=== PATIENT | female | born 1965 | race Two or more races ===

== ENCOUNTER 2019-09-06 16:15 | Emergency (ER) | payer MEDICAID ==
[~2019-09-06] VITALS: Ht 137.2 cm; Wt 69.4 kg
--- NOTE | 2019-09-06 16:45 | NUR ---
Patient came in to ther er c/o left mandibular swelling x 5 days, no improvement even after Antibiotic. On room air, breathing evenly and unlabored. Connected to the monitor and pulse ox. kept comfortable, will continue to monitor accordingly.
[2019-09-06] MEDS ORDERED: KETOROLAC TROMETHAMINE 15 MG/ML VIAL ONE (16:57)
[2019-09-06 16:58] LABS: BASOPHILS # (AUTO) 0.2 /CMM (0.0-0.2); BASOPHILS % (AUTO) 2.1 % (0.0-2.0); HEMATOCRIT 41 % (33-45); HEMOGLOBIN 14.1 g/dL (11.5-14.8); LYMPHOCYTES # (AUTO) 2.6 /CMM (0.8-4.8); LYMPHOCYTES % (AUTO) 30.5 % (20.0-44.0); MEAN CORPUSCULAR HGB CONC 35 g/dl (31.0-36.0); MEAN CORPUSCULAR VOLUME 96 fL (82-100); MONOCYTES # (AUTO) 0.7 /CMM (0.1-1.30); MONOCYTES % (AUTO) 7.7 % (2.0-12.0); NEUTROPHILS # (AUTO) 4.8 /CMM (1.8-8.9); NEUTROPHILS % (AUTO) 55.7 % (43.0-81.0); PLATELET COUNT (AUTO) 255 /CMM (150-450); RED BLOOD CELL COUNT(AUTO) 4.25 MIL/uL (4.0-5.2); WHITE BLOOD COUNT (AUTO) 8.6 K/uL (4.3-11.0)
[2019-09-06] MEDS ORDERED: IV NS 0.9% 1,000 ML BAG IV ONE (17:00)
[2019-09-06] MEDS ORDERED: KETOROLAC TROMETHAMINE INJ 30 MG/ML VIAL IV ONE (17:00)
[2019-09-06 17:05] LABS: CALCIUM, SERUM 9.2 mg/dL (8.5-10.1); CREATININE 0.5 mg/dL (0.6-1.3); POTASSIUM 4.3 mmol/L (3.5-5.1)
[2019-09-06] MEDS ORDERED: CT SWABBABLE VALVE TRANS SET 1 EA INFUS.SET MC ONE (17:27)
[2019-09-06] MEDS ORDERED: IOHEXOL-300 100 ML VIAL IV ONE (17:27)
[2019-09-06] MEDS ORDERED: IV NS 0.9% 250 ML IV ONE (17:27)
--- NOTE | 2019-09-06 17:42 | NUR ---
patient came back from CT
[2019-09-06 18:32] VITALS: BP 135/71
--- NOTE | 2019-09-06 18:33 | NUR ---
Patient discharged to home in stable condition. Written and verbal after care instructions given. Patient verbalizes understanding of instruction.IV removed. Catheter intact and site benign. Pressure and 4x4 applied to site. No bleeding noted.
== END 2019-09-06 18:33 | disposition home or self-care (01) ==
LOC: ER 16:15
DX: R59.1 Generalized enlarged lymph nodes (principal); I10 Essential (primary) hypertension
CPT/HCPCS: 36415; 70491; 80048; 85025; 96374; 99285; J1885; J7030; J7050; Q9967